=== PATIENT | male | born 1995 | race Caucasian/White ===

== ENCOUNTER 2018-11-14 14:40 | Observation (INO) | payer SELFPAY ==
[2018-11-14 14:56] LABS: #Basophils 0.1 thou/uL (0.0-0.2); #Eosinphils 0.1 thou/uL (0.0-0.7); #Lymphocytes 2.7 thou/uL (1.20-3.40); #Monocytes 0.8 thou/uL (0.11-0.59); #Neutrophils 2.4 thou/uL (1.40-6.50); %Basophils 1.7 % (0.0-1.0); %Eosinophils 2.3 % (0.0-10.0); %Lymphocytes 44.1 % (21.0-51.0); %Monocytes 13.4 % (0.0-10.0); %Neutrophils 38.5 % (42.0-75.0); Hemoglobin 16.1 g/dL (14.0-18.0); Mean Corpuscular HGB CONC 35.2 g/dL (32.0-36.0); Mean Corpuscular Hemoglobin 31.1 pg (27.0-31.0); Mean Corpuscular Volume 88.5 fL (78.0-98.0); Mean Platelet Volume 9.6 fL (7.4-10.4); Platelet Count 208 thou/uL (130-400); RBC Distribution Width 11.8 % (11.5-14.5); Red Blood Cell (RBC) Count 5.17 mill/uL (4.70-6.10); White Blood Cell (WBC) Count 6.2 thou/uL (4.8-10.8)
--- NOTE | 2018-11-14 15:14 | RAD ---
XR Chest 1 View Portable History: Adverse reaction to shrooms Comparison: None. Findings: Lungs are clear. No pneumothorax or effusion. Cardiac silhouette and mediastinal contours a re within normal limits. No acute osseous abnormality. Impression: No acute intrathoracic abnormality.
[2018-11-14 15:19] LABS: ALT (SGPT) 18 U/L (8-55); AST (SGOT) 17 U/L (5-34); Acetaminophen Less than 6.0 mcg/mL (10.0-30.0); Alcohol Less than 10 mg/dL (Less than 10); Alkaline Phosphatase 62 U/L (40-150); Anion Gap 18 mmol/L (10-20); BUN (Urea Nitrogen) 14 mg/dL (8.9-20.6); Bilirubin, Total 1.3 mg/dL (0.2-1.2); Calc. Creatinine Clearance 0 mL/min (70-130); Calcium 9.9 mg/dL (7.8-10.44); Carbon Dioxide 19 mmol/L (22-29); Chloride 103 mmol/L (98-107); Estimated GFR-MDRD Greater than 90; Globulin 2.3 g/dL (2.4-3.5); Glucose 131 mg/dL (70-105); Potassium 3.3 mmol/L (3.5-5.1); Protein, Total 7.3 g/dL (6.0-8.3); Salicylate Less than 8.0 mg/dL (15.0-30.0); Sodium 137 mmol/L (136-145)
[2018-11-14 16:39] LABS: Bilirubin Negative (Negative); Blood, Urine Negative (Negative); Clarity Clear (Clear); Glucose, Urine (Dipstick) Normal (Negative); Leukocyte Negative Leu/uL (Negative); Nitrite Negative (Negative); Protein, Urine (Dipstick) Negative (Neg-Trace); Urobilinogen Normal mg/dL (Less than 2)
[2018-11-14 16:54] LABS: Amphetamine Not Detected (NotDetected); Barbiturates Screen Not Detected (NotDetected); Benzodiazepine Screen Not Detected (NotDetected); Cocaine Metabolite Screen Not Detected (NotDetected); Medtox Control Line Valid? VALID (VALID); Medtox Reader # READER 1; Methadone Not Detected (NotDetected); Methamphetamine Not Detected (NotDetected); Opiate Screen Not Detected (NotDetected); Oxycodone Screen Not Detected (NotDetected); Phencyclidine (PCP) Not Detected (NotDetected); THC/Cannabinoid Screen Detected (NotDetected); Tricyclic Screen Not Detected (NotDetected)
[2018-11-14 18:36] VITALS: BMI 20.5
[2018-11-14 19:12] LABS: #Lymphocytes 0.4 thou/uL (1.20-3.40); #Monocytes 0.1 thou/uL (0.11-0.59); #Neutrophils 10.5 thou/uL (1.40-6.50); %Basophils 0.3 % (0.0-1.0); %Lymphocytes 3.2 % (21.0-51.0); %Neutrophils 95.4 % (42.0-75.0); Hemoglobin 15.3 g/dL (14.0-18.0); Mean Corpuscular HGB CONC 35.1 g/dL (32.0-36.0); Mean Corpuscular Hemoglobin 31.4 pg (27.0-31.0); Mean Corpuscular Volume 89.5 fL (78.0-98.0); Mean Platelet Volume 9.1 fL (7.4-10.4); Platelet Count 169 thou/uL (130-400); RBC Distribution Width 11.7 % (11.5-14.5); Red Blood Cell (RBC) Count 4.88 mill/uL (4.70-6.10)
[2018-11-14] MEDS ORDERED: Potassium Chloride 20 MEQ TAB PO SCH (19:15)
[2018-11-14] MEDS ORDERED: Lorazepam 2 MG/ML VIAL ONE (19:21)
--- NOTE | 2018-11-14 19:51 | HP ---
PRIMARY CARE PHYSICIAN: None. CHIEF COMPLAINT: Hallucination, mental status changes. HISTORY OF PRESENT ILLNESS: Mr. Villatoro is a 22-year-old man, who presented to the emergency room today after roommate stated he was having a seizure-like activity and possible allergic reaction to the mushrooms, hallucinogenic 2.75 g taken at approximately 2 p.m. today. The patient and friend at bedside deny any other drug abuse as well. The patient was anxious, diaphoretic, and shaking continuously. Denies any known drug allergies. Denies any pain. Feels generally uncomfortable. States that he was hallucinating a little, although he said it was not that bad. He was agitated, but seemed to be calming down. In the emergency room, he was given Solu-Medrol 125, Ativan 2 mg, Benadryl 50 mg. communication was made to the [facility] Control [facility], who stated that the patient should be monitored on a heart monitor for at least 12 hours. Case is number is [id number]. The patient admitted to the observation unit for further management. REVIEW OF SYSTEMS: Currently, the patient is calm, a little tremulous, and was attempting to eat some dinner. Family at the bedside. He denies currently any chest pain, any palpitations, any shortness of breath or cough. Reports when he first got to the ER, he did have chest pain and palpitations and was experiencing some shortness of breath. Friends around said that he was having trouble getting his words out. He was tremulous in the ER and was irritable. That all seems to have resolved. All other systems reviewed and negative unless mentioned in the HPI. PAST MEDICAL HISTORY: No past medical history. PAST SURGICAL HISTORY: None. PSYCHIATRIC HISTORY: None. SOCIAL HISTORY: Denies any alcohol use, although he does currently admit to drug use. Denies any smoking history. PHYSICAL EXAMINATION: VITAL SIGNS: Temperature is 99.7, pulse is 90, respirations 16, pO2 sats are 100% on room air, and blood pressure is 120/59. CONSTITUTIONAL: He is alert and oriented to person, place, and time. He still appears somewhat uncomfortable, but is calm. HEENT: Head is atraumatic and normocephalic. Eyes, pupils are dilated and reactive. ENT; mouth exam is normal. Mucous membranes are moist. NECK: Normal range of motion. Trachea is midline. RESPIRATORY/CHEST: Breath sounds are clear. Chest expansion is equal. CARDIOVASCULAR: Tachycardic, rhythm regular. Heart sounds are normal. ABDOMEN: Nontender. Bowel sounds are heard. BACK: Normal range of motion. No tenderness. EXTREMITIES: Upper extremity, normal range of motion. Motor strength is normal. Sensation intact. Radial pulses are normal. Lower extremity, normal range of motion. Motor strength is normal. Pedal pulses are normal. NEURO: The patient is oriented to person, place, and time. Speech appears normal. SKIN: Warm, dry, little diaphoretic. PSYCH: He has a normal affect. DIAGNOSTIC DATA: EKG in the emergency room showed sinus tach, beats per minute 107, junctional ST depression. RADIOLOGY: No acute intrathoracic abnormalities. PERTINENT LABORATORY DATA: White blood cell count 6.2, hemoglobin 16.1, and hematocrit 45.7. Potassium is 3.3, carbon dioxide 19, and glucose 131. Urine clear. Toxicology, cannabinoids are high, otherwise negative. ASSESSMENT AND PLAN: 1. Drug use. Normal saline at 150 mL per hour overnight. Heart monitor. Recheck lab values in the morning. 2. Hypokalemia. We will order replacement today. Recheck in the morning. 3. Gastrointestinal and deep venous thrombosis prophylaxes have been started. 4. Hospital course is dependent on clinical findings. Job ID: [id number]
[2018-11-14] MEDS: Sodium Chloride 0.9% 1,000 ML IV SCH (20:12)
[2018-11-14] MEDS: Famotidine 20 MG TAB PO SCH (20:15)
[2018-11-15] MEDS: Sodium Chloride 0.9% 1,000 ML IV SCH ×2 (02:45→09:24)
[2018-11-15 05:09] LABS: ALT (SGPT) 15 U/L (8-55); AST (SGOT) 14 U/L (5-34); Albumin 4.4 g/dL (3.5-5.0); Alkaline Phosphatase 49 U/L (40-150); Anion Gap 10 mmol/L (10-20); BUN (Urea Nitrogen) 10 mg/dL (8.9-20.6); Bilirubin, Total 0.8 mg/dL (0.2-1.2); Calc. Creatinine Clearance 143 mL/min (70-130); Calcium 8.9 mg/dL (7.8-10.44); Carbon Dioxide 22 mmol/L (22-29); Chloride 108 mmol/L (98-107); Estimated GFR-MDRD Greater than 90; Globulin 1.9 g/dL (2.4-3.5); Glucose 153 mg/dL (70-105); Potassium 3.9 mmol/L (3.5-5.1); Protein, Total 6.3 g/dL (6.0-8.3); Sodium 136 mmol/L (136-145)
[2018-11-15 08:25] VITALS: BP 118/59; TEMP 97.7
[2018-11-15] MEDS: Famotidine 20 MG TAB PO SCH (09:24)
--- NOTE | 2018-11-15 16:00 | EKG ---
Test Reason : Blood Pressure : / mmHG Vent. Rate : 107 BPM Atrial Rate : 107 BPM P-R Int : 144 ms QRS Dur : 092 ms QT Int : 386 ms P-R-T Axes : 079 084 060 degrees QTc Int : 515 ms Sinus tachycardia Possible Left atrial enlargement Junctional ST depression, probably normal Borderline ECG Confirmed by VAISHNAVI CASTELLANOS, STEVEN ([id number]), news copy editor YARELY JENSEN ([id number]) on 11/15/2018 4:00:02 PM Referred By: Confirmed By:STEVEN RIGGINS MD
--- NOTE | 2018-11-15 16:25 | DIS ---
DATE OF ADMISSION: 11/14/2018 DATE OF DISCHARGE: 11/15/2018 FINAL DIAGNOSES: 1. Substance abuse. 2. Hypokalemia. HISTORY OF PRESENT ILLNESS: The patient is a 22-year-old male, who was brought to the emergency room by his roommate after he started having some seizure-like activity and possible allergic reaction to the mushrooms and hallucinogens, both of them took around 2:00 p.m. yesterday. The patient was anxious, diaphoretic, and shaky. He was tachypneic, tachycardic. He received Solu-Medrol, Ativan, and Benadryl. Poison Control was called and the emergency room doctor was advised to admit the patient to hospital for heart monitoring for 12 hours. The patient was admitted for observation. At the time of admission, his white count was 6.2, hemoglobin 16.1, and hematocrit 45.7. Patient potassium level was 3.3, CO2 of 19, and glucose 131. Urine drug screen showed positive cannabinoids. Urine was clear. The patient received IV fluids. His hypokalemia was replaced. He was observed in the hospital. His liver function tests showed elevated total bilirubin at 1.3 in the beginning of this hospitalization, which is down to 0.8 today. His liver function test came back normal. He is discharged home in good condition. PHYSICAL EXAMINATION: VITAL SIGNS: His blood pressure is 118/59, pulse is 58, temperature is 97.7, respirations 16, and O2 saturation is 98% on room air. LUNGS: Clear. HEART: S1 and S2 normal. No S3. No S4. No any murmur. ABDOMEN: Soft and nontender. Bowel sounds are present. No organomegaly. EXTREMITIES: No clubbing, cyanosis, or edema. NEUROLOGICAL: He is following my commands. He moves his all 4 extremities. There are no any motor or sensory deficits. DISCHARGE INSTRUCTIONS: The patient is discharged home. Recommendation not to use any mushrooms, apparently this was the second time he took them. He is supposed to follow up with the primary care physician in 1 week. He is going to stay on regular diet. TIME SPENT: Time spent on this discharge is less than 30 minutes. Job ID: [id number]
== END 2018-11-15 11:56 | disposition home or self-care (01) ==
LOC: ERS 14:40 → 2SW 17:00
PROVIDERS: ADMIT Internal Medicine; ATTEND Internal Medicine
DX: F16.10 Hallucinogen abuse, uncomplicated (principal); R56.9 Unspecified convulsions; R41.82 Altered mental status, unspecified; E87.6 Hypokalemia
CPT/HCPCS: 36415; 71045; 80053; 80306; 80307; 81003; 82550; 84484; 85025; 93005; 94760; 96361; 96374; 96375; G0378; J2060